=== PATIENT | female | born 1980 | race Caucasian/White ===

== ENCOUNTER 2025-10-23 10:06 | Outpatient (CLI) | payer OTHER, SELFPAY ==
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
--- OUTSIDE RECORDS SUMMARY | 2025-10-23 11:39 | XMS_ITS | Clinical Summary ---
Author Organization 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 Name Role Phone Fernando Elaine DPT Unavailable Unavailable Young Gaines Unavailable [phone] Louisa Lua NP Primary Care Provider [phone] Allergies Active Allergy Reactions Criticality Noted Date Comments Adhesive Tape-Silicones Unknown 10/03/2017 Latex Unknown 10/03/2017 Tetracycline Rash Medium 08/28/2020 Medications ZyrTEC-D 5-120 mg per 12 hr tablet Take 1 tablet by mouth 2 (two) times a day 0 Active spironolactone (ALDACTONE) 100 mg tablet Take 1 tablet (100 mg total) by mouth daily 0 Active montelukast (SINGULAIR) 10 mg tablet montelukast 10 mg tablet TAKE 1 TABLET BY MOUTH EVERY DAY Active methylPREDNISol one (MEDROL DOSEPACK) 4 mg Dosepack FOLLOW PACKAGE DIRECTIONS 4 Active predniSONE (DELTASONE) 20 mg tablet 4 Active Sutab 1.479-0.188- 0.225 gram tablet as directed 4 Active topiramate (TOPAMAX) 50 mg tablet Take 1 tablet (50 mg total) by mouth 2 (two) times a day 60 tablet 11 5 05/31/20 26 Active Active Problems Problem Noted Date Diagnosed Date Essential tremor 03/01/2022 Migraine 08/28/2020 Assessment & Plan (09/04/2021 11:15 AM CDT): Patient has an antecedent history of migraine without aura but has noticed an increase in headache frequency over the past few weeks. While rizatriptan does ease the headache she is finding that she is having to go through many more than customary. I will increase her baseline propranolol which she has been formally using for tremor suppression has it also can be used for migraine prophylaxis. I will increase it to 40 mg b.i.d.. She will continue on rizatriptan 5 mg b.i.d. p.r.n. for abortive migraine control. I will check an MRI to exclude any structural etiologies to account for increased frequency of headache. She will follow-up in neurology clinic in 6 months for reassessment. Headache 08/28/2020 Seizure 08/28/2020 Tremor 08/28/2020 Assessment & Plan (09/04/2021 11:16 AM CDT): Patient continues on propranolol for essential tremor with good tremor suppression in efficacy. Assessment & Plan (08/28/2020 1:43 PM CDT): Patient is a former patient of [facility] where she was treated for essential tremor with propranolol 20 mg b.i.d.. Prior medical records from [facility] been requested and have not been produced to date. She has had good tolerability with propranolol 20 mg b.i.d. and good subjective suppression of tremor. She is in need of refill of medication. I have renewed her propranolol 20 mg b.i.d. as scheduled, and I plan to see her back in the office in 1 year. Encounters Date Type Department Care Team Description 08/28/2025 10:00 AM CDT Office Visit [facility] Neurology [address] [place] [address] [place] [address] [phone] Kwan Franco Si, MD Migraine without aura and without status migrainosus, not intractable (Primary Dx); Essential tremor 08/02/2025 Telephone [facility] Neurology [address] [place] [address] [place] [address] [phone] Kwan Franco Si, MD Prior Auth (Nurtec 75MG) from Last 3 Months Immunizations Immunization Administration Dates Next Due Influenza, Quadrivalent, Spl it, Preservative Free, Intradermal 08/30/2017 Influenza, Trivalent, IM (MDV) 11/22/2013 Surgical History Surgery Date Site/Laterality Comments [place] ENLARGE BREAST Breast Surgery Enlargement Procedure Bilateral - (Added by TW Conv) [place] SUPRACERVICAL ABDL HYSTER W/WO RMVL TUBE OVARY Supracervical Hysterectomy With Bilateral Removal Of Tubes And Ovaries - (Added by TW Conv) [place] DELIVERY ONLY Section - (Added by TW Conv) BREAST SURGERY 11/07/2003 - 11/06/2004 SECTION 11/07/1998 - 11/06/1999 HYSTERECTOMY 11/07/2016 - 11/06/2017 Medical History Medical History Date Comments Personal history of other di seases of the musculoskeletal system and connective tissue History of back pain - (Adde d by TW Conv) Skin cancer Tremor Migraines Unknown Family History Medical History Relation Name Comments Diabetes Father Kendall Loya Family history of diabetes mellitus - (Added by TW Conv) Hypertension Father Kendall Loya No Known Problems Mother Diabetes Sister 1 Silvia Kelley Hypertension Sister 1 Silvia Kelley Relation Name Status Comments Father Kendall Loya Alive Mother Alive Sister 1 Silvia Kelley Alive Sister 2 Alive Social History Tobacco Use Types Packs/Day Years Used Date Smoking Tobacco: Never Smokeless Tobacco: Never AUDIT-C Answer Date Recorded Q1: How often do you have a drink containing alc ohol? Never 03/01/2022 Average Number of Drinks Not on file 022 Q3: How often do you have si x or more drinks on one occasion? 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 Gender Identity Female 06/09/2020 12:26 PM CDT Sexual Orientation Not on file Last Filed Vital Signs Vital Sign Reading Time Taken Comments Blood Pressure 110/80 08/28/2025 9:53 AM CDT Pulse 91 08/28/2025 9:53 AM CDT Temperature 36.4 C (97.5 F) 03/24/2023 3:29 PM CDT Respiratory Rate 20 03/24/2023 3:29 PM CDT Oxygen Saturation 100% 03/24/2023 3:29 PM CDT Inhaled Oxygen Concentration - - Weight 70.3 kg (155 lb) 08/28/2025 9:53 AM CDT Height 165.1 cm (5' 5) 08/28/2025 9:53 AM CDT Body Mass Index 25.79 08/28/2025 9:53 AM CDT Plan of Treatment Health Maintenance Due Date Last Done Comments Breast Cancer Screening-Mammogram 1979 Colon Cancer Screening-Colonoscopy 1979 Depression Screening 1979 Hepatitis C Screening 1979 DTaP/Tdap/Td Vaccine (1 - Tdap) 1990 Hepatitis B Screening 1997 Regular Well Visit/Exam 18-64 1997 Covid-19 Vaccine (3 - 2024-2 6 season) 2025 03/04/2021, 02/04/2021 Influenza Vaccine (#1) 2025 7, 11/22/2013 HPV Vaccines Aged Out No longer eligi ble based on patient's age to complete this topic Pneumococcal vaccine <65 Aged Out No longer eligible based on patient's age to complete this topic Insurance [facility] PLUS [facility]US [facility] PLUS Care Teams Terrazzo Mechanic Helper Relationship Specialty Start Date End Date Louisa Lua NP [facility] [place] [address] PCP - General Nurse Practitioner 08/28/25 Fernando Elaine DPT Physical Therapist Physical Therapy 08/22/20 Young Gaines PA [address] [place] [address] Physician Project Systems Engineer Internal Medicine 08/28/24
== END 2025-10-23 10:07 | disposition home or self-care (01) ==
PROVIDERS: PCP Nurse Practitioner Adult Health; Visit Provider Nurse Practitioner Adult Health
DX: M54.50 Low back pain, unspecified (principal)
CPT/HCPCS: 72072; 72100